=== PATIENT | male | born 1975 | race Caucasian/White ===

== ENCOUNTER 2016-06-28 18:50 | Emergency (ER) | payer OTHER ==
[~2016-06-28] VITALS: Ht 177.8 cm; Wt 100.0 kg
[2016-06-28 18:58] VITALS: BP 183/94; PULSE 87; RESP 15; O2SAT 97
--- NOTE | 2016-06-28 19:02 | ED.REPORT ---
HPI-Chest Pain Under 40 Date of Service June 28, 2016 ED Provider: Dr. Jozef Gillespie D.O. A 40 year old male with a history of anxiety presents to the ED via EMS with left shoulder pain onset just prior to arrival, while at work. The patient also reports feeling faint, anxious, and as though "something is wrong with my heart. " He denies other symptoms. EMS found the patient with a BP of 153/79, a pulse of 120, and a respiration rate of 30. There were concerns of ST abnormalities in the patient's prehospital EKG and he was given 324 mg ASA en route. Medics witnessed an episode of increased anxiety with arm flapping and tachycardia en route. The patient is a poor historian. Nursing Notes Stated Complaint: CHEST PAIN Chief Complaint: Chest Pain Nursing Notes Reviewed: Yes Allergies: Coded Allergies: No Known Allergies (Unverified , 06/28/16) General Time Seen by MD: 19:02 Chief Complaint Other (Left Shoulder Pain) Hx Obtained From: Patient Arrived By: Ambulance Sudden in Onset?: Yes Onset Occurred: Just prior to arrival Symptom Duration: Since onset Location: : Shoulder left Quality: Painful Severity: Current: Moderate Severity: Maximum: Moderate Pertinent Negative: Relieved by nothing Context Related History: Reports: Anxiety disorder Recent Healthcare: No recent doctor visit Past Medical History Past Medical History Anxiety Past Surgical History None reported Smoking History Unknown if Ever Smoker Ambulatory Status Independent Review of Systems Review of Systems Note: + "Feeling faint" Constitutional: Denies: Fever Respiratory: Denies: Non-productive cough, Shortness of breath GI: Denies: Diarrhea, Vomiting Musculoskeletal: Reports: Joint pain (Left shoulder ) Psychiatric: Reports: Anxiety Complete sys rev & neg: except as marked. Physical Exam Physical Exam Notes: Initial Vital Signs Vital Signs (First) Date Time Temp Pulse Resp B/P Pulse Ox O2 Delivery O2 Flow Rate FiO2 06/28/16 18:58 36.7 87 15 183/94 97 Room Air Initial VS: Reviewed Head / Eyes: Atraumatic, Normocephalic ENT: Conjunctiva normal, No scleral icterus Neck: Supple, Full range of motion Abdomen / GI: Soft, Non-tender Skin: Warm, Dry, No cyanosis Neurologic: Alert, Oriented, Nonfocal General/Constitutional: Awake, Alert Behavior: Positive: Anxious (Highly) Respiratory / Chest: Breath sounds NL, Breath sounds = bilat, No respiratory distress Chest Wall / Ribs: Positive: Chest tender lateral R Cardiovascular: Heart rate NL, Heart sounds NL Occasional PVCs Interpretation & Diagnostics Lab Results Interpretation Result Diagram: 06/28/160 06/28/161899 Test 06/28/16 19:00 06/28/16 21:14 06/28/16 22:35 White Blood Count 6.6th/mm3 (3.8-10.1) Red Blood Count 4.97mil/mm3 (4.40-5.80) Hemoglobin 14.7g/dL (13.8-17.2) Hematocrit 43.1% (41.0-50.0) Mean Corpuscular Volume 86.7fL (81-100) Mean Corpuscular Hemoglobin 29.6pg (27.0-35.0) Mean Corpuscular Hemoglobin Concent 34.1% (32.0-37.0) Red Cell Distribution Width 12.9% (12.3-15.4) Platelet Count 211bil/L (150-400) Neutrophils (%) (Auto) 39.4% (40-74) Lymphocytes (%) (Auto) 48.6% (14-46) Monocytes (%) (Auto) 8.9% (4-12) Eosinophils (%) (Auto) 2.1% (0-5) Basophils (%) (Auto) 0.5% (0-3) D-Dimer < 0.50mg/L FEU (<0.50) Sodium Level 142mEq/L (134-144) Potassium Level 3.7mEq/L (3.5-5.2) Chloride Level 102mEq/L (97-108) Carbon Dioxide Level 24mmol/L (18-29) Blood Urea Nitrogen 15mg/dL (6-20) Creatinine 0.85mg/dL (0.76-1.27) Estimat Glomerular Filtration Rate 107mL/min (>59) Glucose Level 100mg/dL (60-99) Calcium Level 10.1mg/dL (8.5-10.1) Magnesium Level 2.2mg/dL (1.6-2.6) Total Bilirubin 0.3mg/dL (0.0-1.2) Aspartate Amino Transf (AST/SGOT) 36U/L (0-50) Alanine Aminotransferase (ALT/SGPT) 60U/L (0-44) Alkaline Phosphatase 93U/L (25-150) Total Protein 8.0g/dL (6.4-8.4) Albumin 4.5g/dL (3.4-5.0) Hold Lubin Top Tube Received (Received) Hold Urine Received (Received) Troponin T 0.010ug/L (0.0-0.011) ECG Interpretation ECG Interpretation: Sinus rhythm rate [address] changes most likely related to LVH PVC No signs of STEMI Time: 18:59 Interpreted by: ED physician ECG Interpretation: Sinus rhythm rate 77 LVH No dynamic changes Time: 21:05 Interpreted by: ED physician X-Ray Chest Interpretation Chest Xray Interpretation: IMPRESSION: No acute process. Dictated by: Christina Boothe M.D. on 06/28/2016 at 19:26 View: Portable, 1 view Interpretation / Wet Read by: Interpret - Radiologist Re-Eval/Medical Decision Med Decision/Clinical Course This is a very pleasant 40-year-old male who had some sort of an event tonight. He states that he just did not feel well. He then became extremely anxious. He was concerned that maybe his heart was racing. Either way EMS was called. While there looking him up to their machinery he had what sounds like a panic attack started to flail around his arms a bit. His EKG in the field showed sinus rhythm with ectopy. There appears to be some nonspecific ST changes and may be evidence of left ventricular hypertrophy. He was given aspirin and brought in. He presented to the mother department without any specific complaints. Of note he never had any specific chest pain. He had no classical anginal symptoms. He certainly does not have any ripping or tearing pain. He seemed to have some vague right shoulder pain at times. His exam was normal aside from moderate hypertension. He did not have a friction rub. His blood pressure was symmetric in his extremities. Chest x-ray was normal. Mediastinum was not widened. D-dimer was negative. Pulmonary embolus rule out criteria were met. Wells criteria was low risk. Further workup not indicated. Dissection ruled out based on history, physical and diagnostics as well. Serial troponins were negative. EKG was sinus with some ectopy. He clearly has LVH with strain pattern. No evidence of ST elevation or depression consistent with ischemia. He was observed for 4 hours. Serial troponins were run. He did become quite anxious and therefore was given some Ativan. The Ativan worked wonderfully. Discharge is called "collected. He states that he felt better that he has not days. He feels very comfortable being discharged home. His heart score is low. I do not feel that admitting him to the hospital offers any additional benefit. He concurs. He will return if he has any problems or any worsening symptoms. Recommend close follow-up with primary care. Short course of Xanax prescribed for his anxiety symptoms. Re-Evaluation/Progress #1: Time of Eval: 21:45 Patient Status: Condition improved Re-Evaluation/Progress Note: Patient's blood pressure is now 134/78. Discussed with patient x-ray and EKG results with plan for repeat labs. Re-Evaluation/Progress #2: Time of Eval: 23:20 Patient Status: Condition improved Re-Evaluation/Progress Note: Discussed with patient x-ray and lab results, diagnosis, and plan for discharge. Follow-up and return to the ER instructions given. Patient agrees with plan for care and all questions were addressed. Counseled Regarding: Diagnosis, Lab results, Need for follow-up, When/why to return to ED Discharge & Departure Primary Impression: Chest pain Chest pain type: unspecified Qualified Code: R07.9 - Chest pain, unspecified Additional Impressions: Anxiety Hypertension Hypertension type: other secondary hypertension Qualified Code: I15.8 - Other secondary hypertension Disposition: Home Discharge Condition All VS Reviewed: Yes Condition: Improved Patient Instructions: Chest Pain (ED), Generalized Anxiety Disorder (GEN) Additional Instructions: Serial heart enzymes are negative. Your EKG does show evidence of left ventricular hypertrophy which can be associated with high blood pressure. It is essential that are seen in follow-up this week by your primary care physician. You may need to be on antihypertensives. Your blood pressure was elevated while you were in the emergency department. Your blood clot blood test was negative. Your chest x-ray was normal. It is difficult to say exactly what your symptoms were today. Heart attack seems unlikely based on history, physical examination, and diagnostics. A blood clot seems unlikely with the negative blood clot blood test and negative risk factors for blood clots. Regarding the anxiety symptoms you may take 1 Xanax every 8 hours as needed. Do not drive or drink alcohol or consume acetaminophen while taking the Xanax. Return if any problems or any worsening symptoms. Referrals: Zane Morales MD (PCP) Scribe Attestation Portions of this note were transcribed by Ilda Breaux. I, Dr. Gillespie, personally performed the history, physical exam, and medical decision-making; I reviewed and confirmed the accuracy of the information in the transcribed note. Signed by: Natalie Dey, 06/29/2016, 00:25 copies to: Zane Morales MD, Todd P DO June 28, 2016 19:02 ILDA BREAUX June 28, 2016 19:08
[2016-06-28] MEDS ORDERED: Nitroglycerin 2% 1 Gm Ointment TOPICAL ONE (19:05)
[2016-06-28 19:08] LABS: BASOPHILS % (AUTO) 0.5 % (0-3); EOSINOPHILS % (AUTO) 2.1 % (0-5); MONOCYTES % (AUTO) 8.9 % (4-12); Mean Corpuscular Hemoglobin 29.6 pg (27.0-35.0); Mean Corpuscular Volume 86.7 fL (81-100); NEUTROPHILS % (AUTO) 39.4 % (40-74); Platelet Count 211 bil/L (150-400)
--- NOTE | 2016-06-28 19:27 | DRSVH ---
PROCEDURE: X-RAY CHEST ONE VIEW, PORTABLE ([id number]) INDICATIONS: chest pain TECHNIQUE: One view of the chest was acquired. COMPARISON: None. FINDINGS: Surgical changes and devices: None. Lungs and pleura: No pleural effusions or pneumothorax. Lungs are clear. Mediastinum: Mediastinal contours appear normal. Heart size is normal. Bones and chest wall: No suspicious bony lesions. Overlying soft tissues appear unremarkable. IMPRESSION: No acute process. Dictated by: Christina Boothe M.D. on 06/28/2016 at 19:26 Approved by: Christina Boothe M.D. on 06/28/2016 at 19:26
[2016-06-28 19:38] LABS: TROPONIN T < 0.010 ug/L (0.0-0.011)
[2016-06-28 19:46] LABS: Magnesium 2.2 mg/dL (1.6-2.6)
[2016-06-28 20:28] VITALS: BP 167/84; PULSE 80; RESP 14; O2SAT 97
[2016-06-28 21:13] VITALS: BP 134/79
[2016-06-28 23:24] VITALS: BP 154/83; PULSE 76; RESP 17; O2SAT 94
[2016-06-29] VITALS: BP 124/81; PULSE 88; RESP 18; O2SAT 98
== END 2016-06-29 00:02 | disposition home or self-care (01) ==
LOC: SED 18:50 → EDBD 18:50 → EDUNIT# 18:50 → SED 06-29 00:02
DX: R07.9 Chest pain, unspecified (principal); F41.9 Anxiety disorder, unspecified; I15.8 Other secondary hypertension
CPT/HCPCS: 36415; 71010; 80053; 82948; 83735; 84484; 85025; 85378; 93005; 96374; 99285; J2060

== ENCOUNTER 2016-07-06 20:05 | Emergency (ER) | payer OTHER ==
[~2016-07-06] VITALS: Ht 177.8 cm; Wt 104.5 kg
[2016-07-06 20:18] VITALS: BP 176/97; PULSE 85; RESP 16; O2SAT 97
== END 2016-07-06 21:24 | disposition left against medical advice (07) ==
LOC: SED 20:05
DX: Z53.21 Procedure and treatment not carried out due to patient leaving prior to being seen by health care provider (principal)

== ENCOUNTER 2016-07-11 13:50 | Emergency (ER) | payer OTHER ==
[~2016-07-11] VITALS: Ht 180.3 cm; Wt 100.0 kg
[2016-07-11 13:53] VITALS: BP 188/88; PULSE 95; RESP 18; O2SAT 99
--- NOTE | 2016-07-11 15:19 | ED.REPORT ---
HPI-Psychiatric Illness Date of Service July 11, 2016 ED Provider: Gunnar Ruiz MD Pt is a previously healthy 40 y/o male w/ a hx of possible HTN, presenting to the ED with family due to visual/auditory hallucinations and anxiety onset about 3 weeks ago. The patient has been experiencing significant stress for the past few months due to a new infant, financial difficulties, etc. He had his first panic attack on June 28 and was brought here by EMS. He was "worked up for a cardiac cause which was negative". Since then he has been experiencing more panic attacks. He was prescribed Xanax from the ED and subsequently prescribed Zoloft by his PCP. He has also been experiencing insomnia. He went to see a nude model Stacia Mari of [facility] 4 days ago who told him to stop Xanax and start Klonopin. 9 days ago he had a "2 hour encounter with Nael" and was having what his believes are visual/auditory hallucinations. He was started on Risperidone on 07/08 for what the WEB OPERATIONS MANAGER thought could be bipolar disorder and the Klonopin was stopped. Yesterday he woke up experiencing visual and auditory hallucinations of seeing and hearing Nael. Last night he believes the holy spirit entered him. There is no psychiatric history other than these recent episodes. He denies any drug, alcohol, or tobacco use. Their hope for the ED visit today is to discover the cause of his hallucinations and hopefully receive more medications for his anxiety. They deny any SI, HI, or other physical complaints. When the patient is asked if he wants to add to the story he states that everyone in the room was brought to the hospital by Nael and everything that is happening today is because of Nael. Nursing Notes Stated Complaint: MENTAL HEALTH Chief Complaint: Psychiatric Complaint Nursing Notes Reviewed: Yes Allergies: Coded Allergies: No Known Allergies (Unverified , 07/06/16) General Time Seen by MD: 15:07 Chief Complaint Anxious, Hallucinations, auditory, Hallucinations, visual Hx Obtained From: Patient, Spouse Arrived By: Walk-in Onset Occurred: More than a week ago... (3 weeks) Symptom Duration: Since onset Progression Since Onset: Intermittent Severity: Current: No pain currently Severity: Maximum: No pain Recent Healthcare: Recent doctor visit Risk-Psychiatric Illness Suicide Risk Stratification RF Statements: Risk factors N/A Past Medical History Past Medical History Anxiety Chronic knee pain Possible hypertension Plantar fasciitis Past Surgical History None reported Smoking History Never Smoker Social History Alcohol Use: Denies alcohol use Drug Use: Denies drug use Ambulatory Status Independent Review of Systems Constitutional: Denies: Chills, Fever Respiratory: Denies: Non-productive cough, Shortness of breath Cardiovascular: Denies: Chest pain, Dyspnea on exertion GI: Denies: Abdominal pain, Nausea, Vomiting Neurologic: Denies: Focal weakness, Numbness, Problem walking, Slurred speech, Unable to speak, Vision change Psychiatric: Reports: Anxiety, Change mental status, Delusional, Depression, Hallucinations, auditory, Hallucinations, visual, Insomnia, Stress, Denies: Agitation, Homicidal ideation, Hostile, Suicidal ideation, Unable to control self Complete sys rev & neg: except as marked. Physical Exam Initial Vital Signs Vital Signs (First) Date Time Temp Pulse Resp B/P Pulse Ox O2 Delivery O2 Flow Rate FiO2 07/11/16 13:53 36.6 95 18 188/88 99 Room Air Initial VS: Reviewed Head / Eyes: Atraumatic, Normocephalic, PERRL ENT: Mucous membranes moist, Conjunctiva normal, No scleral icterus Neck: Supple, Full range of motion Respiratory: Breath sounds normal, Clear to auscultation, No respiratory distress Cardiovascular: Regular rate & rhythm, Heart sounds normal, Intact distal pulses Abdomen / GI: Soft, Non-tender Extremities: Vascular intact, Neuro intact, No swelling, No tenderness Skin: Warm, Dry, No cyanosis General/Constitutional: Awake, Alert, No acute distress, Cooperative, Not toxic appearing Neurologic: Oriented X3, Speech NL, No motor deficits, No sensory deficits Psychiatric: Not suicidal, Not homicidal Responding to internal stimuli Delusional Not agitated Interpretation & Diagnostics Lab Results Interpretation Result Diagram: 07/11/16 1543 07/11/16 1543 Test 07/11/16 15:43 07/11/16 17:00 White Blood Count 7.4th/mm3 (3.8-10.1) Red Blood Count 4.93mil/mm3 (4.40-5.80) Hemoglobin 14.5g/dL (13.8-17.2) Hematocrit 42.9% (41.0-50.0) Mean Corpuscular Volume 87.0fL (81-100) Mean Corpuscular Hemoglobin 29.4pg (27.0-35.0) Mean Corpuscular Hemoglobin Concent 33.8% (32.0-37.0) Red Cell Distribution Width 12.9% (12.3-15.4) Platelet Count 237bil/L (150-400) Neutrophils (%) (Auto) 61.7% (40-74) Lymphocytes (%) (Auto) 29.3% (14-46) Monocytes (%) (Auto) 7.1% (4-12) Eosinophils (%) (Auto) 1.1% (0-5) Basophils (%) (Auto) 0.5% (0-3) Sodium Level 138mEq/L (134-144) Potassium Level 4.7mEq/L (3.5-5.2) Chloride Level 100mEq/L (97-108) Carbon Dioxide Level 24mmol/L (18-29) Blood Urea Nitrogen 15mg/dL (6-20) Creatinine 0.91mg/dL (0.76-1.27) Estimat Glomerular Filtration Rate 99mL/min (>59) Glucose Level 114mg/dL (60-99) Calcium Level 10.1mg/dL (8.5-10.1) Total Bilirubin 0.4mg/dL (0.0-1.2) Aspartate Amino Transf (AST/SGOT) 36U/L (0-50) Alanine Aminotransferase (ALT/SGPT) 58U/L (0-44) Alkaline Phosphatase 93U/L (25-150) Total Protein 8.4g/dL (6.4-8.4) Albumin 4.6g/dL (3.4-5.0) Thyroid Stimulating Hormone (TSH) 1.960uIU/mL (0.450-4.500) Hold Lubin Top Tube Received (Received) Hold Urine Received (Received) CT Head Interpretation IMPRESSION: 1. No acute intracranial process. Dictated by: Xochilt Peter M.D. on 07/11/2016 at 16:27 Approved by: Xochilt Peter M.D. on 07/11/2016 at 16:28 Study: Head CT no contrast Interpretation / Wet Read by: Interpret - Radiologist Re-Eval/Medical Decision Med Decision/Clinical Course Pt is a previously healthy 40 y/o male w/ a hx of possible HTN, presenting to the ED with family due to visual/auditory hallucinations and anxiety onset about 3 weeks ago. The patient has been experiencing significant stress for the past few months due to a new infant, financial difficulties, etc. He had his first panic attack on June 28 and was brought here by EMS. He was "worked up for a cardiac cause which was negative". Since then he has been experiencing more panic attacks. He was prescribed Xanax from the ED and subsequently prescribed Zoloft by his PCP. He has also been experiencing insomnia. He went to see a nude model Stacia Mari of [facility] 4 days ago who told him to stop Xanax and start Klonopin. 9 days ago he had a "2 hour encounter with Nael" and was having what his believes are visual/auditory hallucinations. He was started on Risperidone on 07/08 for what the WEB OPERATIONS MANAGER thought could be bipolar disorder and the Klonopin was stopped. Yesterday he woke up experiencing visual and auditory hallucinations of seeing and hearing Nael. Last night he believes the holy spirit entered him. There is no psychiatric history other than these recent episodes. He denies any drug, alcohol, or tobacco use. Their hope for the ED visit today is to discover the cause of his hallucinations and hopefully receive more medications for his anxiety. They deny any SI, HI, or other physical complaints. When the patient is asked if he wants to add to the story he states that everyone in the room was brought to the hospital by Nael and everything that is happening today is because of Nael. Here in the emergency department the patient is afebrile with stable vital signs and examination as above. Labs notable as below: CBC: Unremarkable CMP: Unremarkable Urine tox: positive for TCA CT scan of the patient's head demonstrated no acute intracranial process. The overall constellation of symptoms and presentation to me most clearly resembles bipolar disorder with psychotic symptoms. The patient is pressured, not sleeping having hyper cheondoism delusions with auditory hallucinations. Here he was treated with Seroquel with good effect. He was seen and evaluated by emergency department social contact worker who suggested that he be evaluated by DM. [facility] evaluated the patient and did not feel that he required involuntary hold. He is not suicidal, he is not agitated, he has no suicidal or homicidal ideation and family feels safe taking him home. He refuses to be admitted to the hospital. He has outpatient psychiatric resources. It sounds as if his current dose of risperidone is not adequately treating his symptoms. Therefore we have recommended he increase it to 2 mg nightly and follow up with his prescribing physician first thing on Wednesday. Additionally he will be seen by the [facility] team. Patient and family are comfortable with this plan. Prior to discharge follow-up and return precautions were reviewed in detail with the patient/family who verbalized understanding and agreement with the plan. The patient was discharged in stable condition. Re-Evaluation/Progress : Time of Eval: 21:36 )( Re-Eval Psychiatric: No danger to self, No danger to others, No suicidal ideation, No homicidal ideation Re-Evaluation/Progress Note: Pt rechecked. Informed pt of plan for treatment. Pt understands and agrees with plan for treatment. F/U instructions and RTER warnings given. All questions addressed. Consultation : Consulted With: hops farmworker Call Returned at: 17:00 Note: Recommends [facility] evaluation. Counseled Regarding: Diagnosis, Lab results, Need for follow-up, When/why to return to ED Discharge & Departure Impression: Primary Impression: Acute psychosis Additional Impressions: Acute situational disturbance Auditory hallucinations )( Condition at Discharge: No danger to self, No danger to others, No suicidal ideation, No homicidal ideation Disposition: Home Discharge Condition All VS Reviewed: Yes Condition: Stable Patient Instructions: Psychiatric Hallucinations (ED) Additional Instructions: Thank you for seeking care at the emergency room. It is difficult for us to make definitive diagnoses in the ED but we believe that you are experiencing symptoms which may be caused by bipolar disorder. Our primary goal today in the ED was to evaluate you for any life-threatening conditions. Your evaluation was reassuring. Your labs and CT scan of the brain were all normal today. Start taking 2 mg Risperidone each night instead of twice daily. You should follow-up with your psychiatrist on Wednesday. Call to set up an appointment. Use the resources given to you by our social contact worker and mental health professional. You should return to the ED immediately if you develop shaking, high fever, thoughts of harming yourself or others, or any other concerning signs or symptoms. Thank you for letting us partake in your care today. Referrals: Zane Morales MD (PCP) Scribe Attestation Portions of this note were transcribed by Eliezer Madrigal. I, Dr. Ruiz personally performed the history, physical exam and medical decision-making; I reviewed and confirmed the accuracy of the information in the transcribed note. Signed by Natalie Goldstein, 07/11/16 153 copies to: Zane Morales MD, Beck O MD July 11, 2016 15:19 ELIEZER MADRIGAL July 11, 2016 15:25
[2016-07-11 15:53] LABS: BASOPHILS % (AUTO) 0.5 % (0-3); EOSINOPHILS % (AUTO) 1.1 % (0-5); MONOCYTES % (AUTO) 7.1 % (4-12); Mean Corpuscular Hemoglobin 29.4 pg (27.0-35.0); NEUTROPHILS % (AUTO) 61.7 % (40-74); Platelet Count 237 bil/L (150-400)
--- NOTE | 2016-07-11 16:30 | DRSVH ---
PROCEDURE: CT BRAIN WITHOUT CONTRAST ([id number]) INDICATIONS: ams TECHNIQUE: Noncontrast 4.5 mm thick angled axial sections acquired from the foramen magnum to the vertex, with c oronal reformats. COMPARISON: None. FINDINGS: Image quality: Excellent. CSF spaces: Basal cisterns are patent. No extra-axial fluid collections. Ventricles are normal in size and shape. Brain: No midline shift. No intracranial masses or hemorrhage. Mishra-white matter interface is norm al. Skull and face: Calvarium and visualized facial bones are intact, without suspicious lesions. Sinuses: Visualized sinuses and mastoids are clear. IMPRESSION: 1. No acute intracranial process. Dictated by: Xochilt Peter M.D. on 07/11/2016 at 16:27 Approved by: Xochilt Peter M.D. on 07/11/2016 at 16:28
[2016-07-11 18:27] VITALS: BP 107/70; PULSE 96; O2SAT 97
== END 2016-07-11 22:21 | disposition home or self-care (01) ==
LOC: SED 13:50
DX: F23 Brief psychotic disorder (principal); R44.0 Auditory hallucinations; F43.0 Acute stress reaction; F41.0 Panic disorder [episodic paroxysmal anxiety]; G47.00 Insomnia, unspecified